=== PATIENT | female | born 1995 | race Caucasian/White ===

== ENCOUNTER → 2016-05-27 06:49 | Day surgery (SDC) | payer BC ==
[~2016-05-27 06:49] MED LIST: Buffered Lidocaine 1% SYR 3ML* 3 ML/SYR SYRINGE INTRADERM ONE; Buffered Lidocaine 1% SYR 3ML* 3 ML/SYR SYRINGE ONE; Bupivacaine 0.25% EPI 200,000* 30 ML SDV ONE; Bupivacaine 0.25% SDV* 30 ML ONE; Dexamethasone IV* 4 MG/ML 1 ML (4 MG) ONE; DiMENhydriNATE IV* 50 MG/ML VIAL IV PUSH PRN; Famotidine IV* 10 MG/ML 2 ML (20 mg) IV ONE; Famotidine IV* 10 MG/ML 2 ML (20 mg) ONE; HYDROmorphone INJ* 1 MG/ML CARPUJECT SYRINGE IV PRN; HYDROmorphone INJ* 1 MG/ML CARPUJECT SYRINGE ONE; KETAMINE HCL* 50 MG/ML 10 ML VIAL ONE; Ketorolac INJ* 30 MG/ML 1 ML VIAL ONE; Lidocaine 2% PF * 5 ML VIAL ONE; Midazolam* 1 MG/ML 5 ML VIAL (5 MG) ONE; Ondansetron INJ* 2 MG/ML VIAL ONE; Propofol* 10 MG/ML 20 ML BTL IV PUSH ONE; ceFAZolin 2 GM PREMIX (*) 2 GM/50 ML BAG IVPB ONE; fentaNYL* 50 MCG/ML 2 ML VIAL (100 MCG VIAL) ONE; oxyCODONE/Acetamin 5/325 MG* TAB ONE; oxyCODONE/Acetamin 5/325 MG* TAB PO PRN
[2016-05-27 11:54] VITALS: BP 108/69
--- NOTE | 2016-05-28 11:21 | OP ---
AMENDED REPORT NOW INCLUDES PERTINENT JOB NUMBERS FOR CONTINUATION ADDENDUM * CONTINUATION ADDENDUM NOW SET UP BY INBOUND SALES ADVISOR - ORIGINALLY ADDED BY OTHER STAFF * ESIGNED BEFORE ALL ADJUSTMENTS DATE OF OPERATION: 05/27/16 - OR EAST DATE OF : [birth year] SURGEON: Ramya Edwards MD POPCORN VENDOR: ARCELIA Bridges. Krys was needed for the entirety of the case to help with positioning, retraction, and closure, and was utilized throughout all portions. ANESTHESIOLOGIST: Dr. Cruz. ANESTHESIA: General. PRE-OP DIAGNOSIS: Left knee grade III anterior cruciate ligament rupture with medial meniscus tear. POST-OP DIAGNOSES: Left knee anterior cruciate ligament grade III tear, displaced parrot-beak tear of the medial meniscus and loose body. OPERATIVE PROCEDURES: Left knee arthroscopy with: 1. ACL reconstruction using BTB autograft. 2. Partial medial meniscectomy. 3. Removal of loose body. 4. Chondroplasty of medial femoral condyle. IMPLANTS: Lujan and Nephew Soft Silk screws 7 x 25 and 9 x 20. 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 She was misdiagnosed for some time. She had persistent episodes of catching, lock, and instability. The recent MRI was done in the last two months that was read by the radiologist as a normal ACL, when in fact there was complete absence of an ACL as well as meniscus tear that was displaced. The patient was then seen by a physician back home, who was going to do a reconstruction due to her instability, but she was unable to be seen. She was then subsequently scheduled with me, to be done prior to going back to school. Risks and benefits of surgery were discussed at length and include, but are not limited to, bleeding, infection, damage to nerves, vessels, surrounding structures, wound nonhealing, persistent pain, arthritis, worsening, incomplete relief of symptoms, risk of anesthesia, re- rupture, need for further surgery, and risk of DVT. She has a family history significant for DVT in her father for no noted reason, he has minimal medical problems; therefore, we are planning to anticoagulate her postoperatively. DESCRIPTION OF PROCEDURE: The patient was greeted in the preoperative area by the attending surgeon. Correct extremity was marked and consent was confirmed. The patient was brought back to the operating suite, where she was placed in the supine position on the operating table. She then underwent general anesthesia, endotracheal intubation, after which the left leg was then examined. Under anesthesia, the range of motion was 0 to 130 degrees, stable to varus and valgus stress, 2B Jesse's, and negative posterior drawer, and mild effusion was noted. 1+ pivot shift. A nonsterile tourniquet was placed high on the proximal thigh. A lateral post was placed, after which a miniature surgical pause was carried out and the knee was intraarticularly injected with 0.25% Marcaine with epi. The left leg was then prepped and draped in the usual sterile fashion beginning with chlorhexidine soap and alcohol wipe and a final prep with ChloraPrep. After appropriate surgical pause indicating side, site, procedure, and administration of antibiotics, the left leg was exsanguinated and the tourniquet was inflated to 250 mmHg. The knee was placed in 90 degrees of flexion and an incision centered over the patellar tendon was then made sharply with a 10 blade. The soft tissues were carefully dissected to expose the paratenon, which was then incised and kept protective for layer of closure. The center third of the tendon was identified and then harvested for 10 mm in width. The dissection was carried out proximally to the patellar bone approximately. The bone blocks were then harvested for a patellar bone block of 9 x 23 mm and a tibial bone block for 10 x 30 mm. The cuts were then made with a sagittal saw. The osteotome was used to loosen the graft and the graft was then removed. This was then prepared on the back table by the attending surgeon. Once the graft was situated first and size 9 x 23 femoral block and 10 x 30 tibial block, the graft was kept on saline-soaked gauze on the back table. Meanwhile, the household personal assistant was closing the patellar tendon using 0 Vicryl in interrupted fashion with care not to overtighten and thus cause patella baja. An 11 blade was then used to incise the capsule where the lateral portals should be. The scope was then introduced through the joint. The joint was examined. There were grade 0 to 1 changes in the patellofemoral joint. The lateral gutter without any loose bodies. The medial gutter had unstable meniscal flap that was apparent in the medial gutter. The scope was then placed in the notch and there was a complete absence of the ACL up from the femoral side. The PCL was intact. The remaining tibial stump was scarred to the anterior aspect of the PCL. The scope was then placed in the medial compartment. Again, there this large parrot- beak tear was then identified. It had flipped over and was tracked in between the condyles. This was then gently manipulated out after the anteromedial portal was made and due to the fact that this was poorly perfused, decision was made to do a meniscectomy. Care was tried to preserve as much of her resighini meniscus as possible. The shaver and the biters were used to remove the large piece. The remainder of the medial compartment had grade 0 to 1 changes except for one small area that had an area of grade 2 changes with unstable flap. This was then debrided back. The knee was then placed in figure-of-4 position and lateral compartment was identified. Lateral meniscus was intact. Lateral femoral condyle had grade 0 to 1 changes. The tibial plateau had grade 0 to 1 changes. There was also a loose body that was floating in the lateral compartment. This was then removed and found to be about 5 mm. After this was removed, attention was directed back to the ACL. The remaining tibial stump was then debrided back. The tibial insertion was identified. A starting awl was then used to alek the femoral ACL insertion. This was then checked by changing the camera from the lateral to the medial portal. Next, the tibial guide was then placed at around 50-degree angle. A guidewire was then positioned to the center of the tibial footprint. This was then overdrilled with a size 10 full-bore reamer. Excess bone and debris were saved for later bone graft. The tunnel was then carefully rasped and shaved, so that there were loose tissues or debris in the joint. Next, a small carrotwas used to prevent fluid egress. Next, the femoral tunnel was addressed. The knee was placed in hyperflexion. The straight Lujan and Nephew guide arm was then used to place the Beath pin in center of the footprint. The guide pin was advanced directly through the bone out to the lateral condyle and out through the skin wound. Once it was found to be in appropriate position, this was then overdrilled with a size 9 mm low-profile reamer to a depth of 25 mm. All excess bone and debris was removed from the knee, and once the tunnel was visualized, it was found to be intact with an intact back wall. The tunnel was then notched for later nitinol wire placement. Again, once excess bone was removed, the #2 Ti-Cron suture was passed through the needle end of the Ti-Cron and then passed through the femoral tunnel, and then anterograde fashion through the tibial tunnel. At this point, the graft was brought to the operating table and passed under arthroscopic visualization, it was well seated into the femoral tunnel. Once it was completely seated, the nitinol wire was used to help for position the screw and a 7 x 25 mm screw was placed with excellent purchase to secure the femoral graft. Images were obtained. The knee was then cycled 15 times with tension on the tibial sutures. The knee was then placed in about 10 to 20 degrees of flexion with posterior drawer and tension on the tibial sutures. The nitinol wire was used to help secure a 9 x 20 mm SoftSilk screw. This again had excellent purchase, after which, the knee was taken through range of motion. Scope was brought back into the joint and found to have no changes to the graft placement and screws were found to not penetrate. All loose debris and scope were removed from the joint. The Jesse was assessed, which was found to be stable. The wounds were copiously irrigated. The excess bone graft was then placed in the previously made patellar bone defect and then oversew with 0 Vicryl. The paratenon was closed with 2-0 Vicryl. The subcutaneous was closed with 2-0 Vicryl and then the skin was closed with 3-0 Monocryl. Sterile dressings were applied. The wound was injected with 0.25% Marcaine plain along the skin as well as intraarticularly. Sterile dressings were applied. A Cryo/Cuff and a hinged knee brace locked in extension. She was awoken from anesthesia and transferred to the PACU in stable condition. POSTOPERATIVE PLAN: She will be weightbearing as tolerated. She will be allowed to work on range of motion. She will be allowed to go home, work on straight leg raises, quad sets, calf pumps. DVT prophylaxis was considered and because of her family history, she was placed on Lovenox during the perioperative period. She will follow up in the office next week. [id number] #: [id number]/CPS #: [id number] [facility]IT[facility]
== END | disposition home or self-care (01) ==
LOC: OREAST 06:49
PROVIDERS: ATTEND Orthopaedic Surgery
DX: S83.512A Sprain of anterior cruciate ligament of left knee, initial encounter (principal); S83.232A Complex tear of medial meniscus, current injury, left knee, initial encounter; X50.9XXA Other and unspecified overexertion or strenuous movements or postures, initial encounter; Y93.23 Activity, snow (alpine) (downhill) skiing, snowboarding, sledding, tobogganing and snow tubing; Y92.39 Other specified sports and athletic area as the place of occurrence of the external cause
CPT/HCPCS: 88304; A9270-GY; J0690; J1100; J1170; J1885; J2250; J2405; J2704; J3010

== ENCOUNTER 2017-05-20 20:02 | Emergency (ER) | payer BC, OTHER ==
[2017-05-20 20:59] VITALS: BP 113/70
[2017-05-20] MEDS ORDERED: Sodium Phosphate ADULT ENEMA* 118 ml bottle PR ONE ×2 (22:13→22:43)
--- NOTE | 2017-05-20 22:14 | UC ---
Jaspreet Chau Stephanie, scribed for Katheryn Kirk MD on 05/20/17 at 2201 . Rectal Pain HPI - HPI Summary HPI Summary: The pt is a 21 y/o F presenting to with rectal pain and constipation that began today. The rectal pain is described as spasms when she attempts to have a BM. The pt reports that she has been constipated for 2 days, prior to which she had 3 days of diarrhea. The pt denies blood with attempted BM. No blood, no black stools. The pt consumed meals and liquids normally today. The pt denies history of constipation. Pt took 2 colace today without results. No h/o constipation. She reports that she switched her control last week. LKMP was within the week of May 08. Pt's medications reviewed this visit - History Of Current Complaint Chief Complaint: UCGI Stated Complaint: CONSTIPATION Time Seen by Provider: 05/20/17 21:31 Hx Obtained From: Patient ?: No Onset/Duration: Lasting Days - 2, Still Present, Worse Since - this am Timing: Constant Severity Currently: Mild Pain Intensity: 4 Pain Scale Used: 0-10 Numeric Location Of Pain: Rectal Character: Pressure Aggravating Factor(s): Bowel Movement Alleviating Factor(s): Nothing Associated Signs And Symptoms: Positive: Constipation. Negative: Rectal Bleeding, Blood-Streaked Stool - Allergies/Home Medications Allergies/Adverse Reactions: Allergies Allergy/AdvReac Type Severity Reaction Status Date / Time ENVIRONMENTAL/SEASONAL Allergy ITCHY Uncoded 07/31/16 12:36 WATERY EYES, NOSE, CONGESTION Home Medications: Home Medications Docusate Sodium [Colace] 05/20/17 [History] Spironolactone [Aldactone 25 MG-] 05/20/17 [History] PMH/Surg Hx/FS Hx/Imm Hx Previously Healthy: Yes Psychological History: Depression - Surgical History Surgical History: Yes Surgery Procedure, Year, and Place: 2014 WISDOM TEETH EXTRACTION, [facility];. 10/2015 UPPER TEETH IMPLANTS, [place], [place];. LT KNEE - ACL REPAIR; - Family History Known Family History: Positive: Cardiac Disease, Diabetes - Social History Occupation: Student Lives: Dormitory/Roommates Alcohol Use: None Substance Use Type: Marijuana Smoking Status (MU): Never Smoked Tobacco Review of Systems Constitutional: Negative Skin: Negative Gastrointestinal: Other - Negative: blood in stool, constipation, rectal pain All Other Systems Reviewed And Are Negative: Yes Physical Exam Triage Information Reviewed: Yes Appearance: Well-Appearing - anxious, No Pain Distress, Well-Nourished Vital Signs: Initial Vital Signs Temp 98.4 F 05/20/17 20:52 Pulse 79 05/20/17 20:52 Resp 16 05/20/17 20:52 BP 113/70 05/20/17 20:52 Pulse Ox 98 05/20/17 20:52 Eye Exam: Normal Eyes: Positive: Conjunctiva Clear ENT Exam: Normal ENT: Positive: Normal ENT inspection, Hearing grossly normal, Pharynx normal, TMs normal Dental Exam: Normal Neck exam: Normal Neck: Positive: Supple, Nontender, No Lymphadenopathy Respiratory Exam: Normal Respiratory: Positive: Chest non-tender, Lungs clear, Normal breath sounds, No respiratory distress, No accessory muscle use Cardiovascular Exam: Normal Cardiovascular: Positive: RRR, No Murmur, Pulses Normal Abdominal Exam: Normal Abdomen Description: Positive: Nontender, No Organomegaly, Soft, Other: - pt declined rectal exam Musculoskeletal Exam: Normal Neurological Exam: Normal Psychological Exam: Normal Skin Exam: Normal Diagnostics - Laboratory Diagnostic Studies Completed/Ordered: Patient Name: ABDIFATAH VILLASENOR Medical Record#: [id number]. Ordering Physician: Katheryn Kirk MD Acct.#: [id number]. : 1995 Age: 21 Sex: F Location: [facility]. Exam Date: 05/20/172151 ADM Status: REG ER. Order Information: ABDOMEN/KUB 1 VW. Accession Number: [id number]. CPT: 04809. INDICATION: 4 days of constipation with nausea. COMPARISON: None. TECHNIQUE: 2 views the abdomen were obtained. FINDINGS: There is a large amount of stool seen throughout the length of the colon. There is no free. intraperitoneal gas. The stool-filled rectum measures just under 8 cm in diameter. IMPRESSION: RADIOGRAPHIC FINDINGS ARE CONSISTENT WITH CONSTIPATION WITH THE STOOL-FILLED. RECTUM MEASURING 7.6 CM IN DIAMETER. . <Electronically signed by Piotr Collins MD in OV> 05/20/172227. Dictated By: Piotr Collins MD. Dictated Date/Time: 05/20/172227. Transcribed Date/Time: 05/20/172225. Copy to: - Radiology No standard instances Xray Interpretation: Positive (See Comments) - large stool with distended rectal vault Radiology Interpretation Completed By: ED Physician, Radiologist Re-Evaluation - Re-Evaluation First Eval Re-Evaluation Time: 22:09 Change: Unchanged - Dr. Kirk discussed Xray results with the pt. The pt understands and agrees with procedure options. Pt requesting to try enema Second Eval Re-Evaluation Time: 22:40 Change: Worse - pt unable to retain enema pt with increased rectal spasm and cramping. little stool result Pt placed on stretcher and moved to a different room. With comfort measures, pts able to refocus and settle. Pt permitted rectal exam - using lubrication and viscous lidocaine, manual disimpaction or large amouhnt of stool in vault. Pt tolerated well. No bleeding. Pt in agreement to try second enema Third Eval Re-Evaluation Time: 23:15 Comment: After second enema, pt produced very large stool Pt reports feeling markedly improved. No cramping, no bleeding. Pt expressed relief and comfort. d /w pt possible use of mag citrate. daily colace BID. hydration fiber. return precautions. Pt comfortable and in agreement with plan. quesitons asked and answered Rectal Pain Course/Dx - Course Course Of Treatment: Pt presents with feeling constipated and rectal spasms with attempt for BM. Pt declining rectal exam. will image flatplat abd for ? enema vs oral tx. pt comfortable and in agreement with plan - Differential Dx/Diagnosis Provider Diagnoses: constipation. rectal spasms Discharge - Discharge Plan Condition: Stable Disposition: HOME Patient Education Materials: Constipation (ED), High Fiber Diet (ED) Referrals: [facility] - Jorge MARION [Primary Care Provider] - Additional Instructions: - Purchase 1 bottle of magnesium citrate. Drink 1/2 bottle. If you do not move your bowels after 4 hours, drink the second half of the bottle - Okay to take Tylenol every 6 hours as needed for discomfort - Drink plenty of fluids - water, apple juice, gatorade - Increase fiber in your diet - this includes fruits, vegetables, whole grains, and over the counter fiber supplements such as miralax - It is recommended you take colace 100mg 2 times a day until you are having regular, daily bowel movement - you may experience some abdominal discomfort and cramping - this is normal when your bowels start to move - it is recommended you go to the emergency department if you have continued inability to have bowel movement or pain The documentation as recorded by the Jaspreet sweeney Stephanie accurately reflects the service I personally performed and the decisions made by me, Katheryn Kirk MD.
[2017-05-20] MEDS ORDERED: Lidocaine 2% VISCOUS* 15 ML UDC ONE ×2 (22:30→22:44)
--- NOTE | 2017-05-20 22:31 | RAD ---
INDICATION: 4 days of constipation with nausea COMPARISON: None TECHNIQUE: 2 views the abdomen were obtained. FINDINGS: There is a large amount of stool seen throughout the length of the colon. There is no free intraperitoneal gas. The stool-filled rectum measures just under 8 cm in diameter. IMPRESSION: RADIOGRAPHIC FINDINGS ARE CONSISTENT WITH CONSTIPATION WITH THE STOOL-FILLED RECTUM MEASURING 7.6 CM IN DIAMETER.
== END 2017-05-20 23:35 | disposition home or self-care (01) ==
LOC: UCEAST 20:02
DX: K59.00 Constipation, unspecified (principal); R11.0 Nausea; K59.4 Anal spasm; F32.9 Major depressive disorder, single episode, unspecified; F12.90 Cannabis use, unspecified, uncomplicated
CPT/HCPCS: 74018; 99213; A9270-GY; G0463

== ENCOUNTER 2017-05-23 17:39 | Emergency (ER) | payer BC, OTHER ==
[2017-05-23 17:59] VITALS: BP 115/72
--- NOTE | 2017-05-23 18:32 | UC ---
Complaint Female HPI - HPI Summary HPI Summary: Pt presents with urinary frequency, burning, and mild blood in her urine since midday today. She has had UTIs in the past and this is how they present - per pt. She denies fever, chills, SOB, chest pain, abdominal pain, n/v/d/c, or flank pain. - History Of Current Complaint Chief Complaint: UCGU Stated Complaint: UTI Time Seen by Provider: 05/23/17 18:32 Hx Obtained From: Patient Hx Last Menstrual Period: 05/05/17 Onset/Duration: Sudden Onset Timing: Constant Severity Initially: Mild Severity Currently: Mild Pain Intensity: 3 - Allergies/Home Medications Allergies/Adverse Reactions: Allergies Allergy/AdvReac Type Severity Reaction Status Date / Time ENVIRONMENTAL/SEASONAL Allergy ITCHY Uncoded 07/31/16 12:36 WATERY EYES, NOSE, CONGESTION Home Medications: Home Medications Control Pill 05/23/17 [History] PMH/Surg Hx/FS Hx/Imm Hx - Surgical History Surgical History: Yes Surgery Procedure, Year, and Place: 2014 WISDOM TEETH EXTRACTION, [facility];. 10/2015 UPPER TEETH IMPLANTS, [place], [place];. LT KNEE - ACL REPAIR; - Family History Known Family History: Positive: Cardiac Disease, Diabetes - Social History Occupation: Student Lives: Dormitory/Roommates Alcohol Use: Occasionally Substance Use Type: Marijuana Substance Use Comment - Amount & Last Used: once every 2 months Smoking Status (MU): Never Smoked Tobacco Review of Systems Constitutional: Negative Respiratory: Negative Cardiovascular: Negative Gastrointestinal: Negative Genitourinary: Dysuria, Hematuria, Frequency All Other Systems Reviewed And Are Negative: Yes Physical Exam Triage Information Reviewed: Yes Appearance: Well-Appearing, No Pain Distress, Well-Nourished Vital Signs: Initial Vital Signs Temp 98.1 F 05/23/17 17:55 Pulse 69 05/23/17 17:55 Resp 18 05/23/17 17:55 BP 115/72 05/23/17 17:55 Pulse Ox 100 05/23/17 17:55 Vital Signs Reviewed: Yes Neck: Positive: Supple, Nontender, No Lymphadenopathy Respiratory: Positive: Lungs clear, Normal breath sounds, No respiratory distress Cardiovascular: Positive: RRR, No Murmur, Pulses Normal Abdomen Description: Positive: Nontender, No Organomegaly, Soft. Negative: CVA Tenderness (R), CVA Tenderness (L), Distended, Guarding Bowel Sounds: Positive: Present Neurological: Positive: Alert Psychological: Positive: Age Appropriate Behavior Skin: Negative: rashes Complaint Female Dx - Course Course Of Treatment: U/A POC: 3+ Leuks. 2+ Protein. 2+ Blood. Treat with Bactrim and sent for culture. - Differential Dx/Diagnosis Provider Diagnoses: UTI Discharge - Discharge Plan Condition: Stable Disposition: HOME Prescriptions: Sulfamethox/Trimethoprim DS* [Bactrim DS 800/160 TAB*] 1 tab PO BID #10 tab Patient Education Materials: Urinary Tract Infection in Women (ED) Referrals: [facility] - Jorge MARION [Primary Care Provider] - Additional Instructions: If you develop a fever, shortness of breath, chest pain, new or worsening symptoms - please call your PCP or go to the ED.
--- NOTE | 2017-05-25 16:26 | UC ---
- Progress Note Progress Note: Call patient notify her if symptoms continue to please seek follow up care with pcp as she does not have evidence of urinary tract infection on culture-- patient may stop antibiotic Course/Dx - Course Course Of Treatment: U/A POC: 3+ Leuks. 2+ Protein. 2+ Blood. Treat with Bactrim and sent for culture.
== END 2017-05-23 19:15 | disposition home or self-care (01) ==
LOC: UCEAST 17:39
DX: N39.0 Urinary tract infection, site not specified (principal); F12.90 Cannabis use, unspecified, uncomplicated; Z91.09 Other allergy status, other than to drugs and biological substances
CPT/HCPCS: 81003; 87086; 99212; G0463